=== PATIENT | female | born 1955 | race Caucasian/White ===

== ENCOUNTER 2022-09-23 13:27 | Emergency (ER) | payer OTHER, BC ==
[~2022-09-23] VITALS: Ht 162.6 cm; Wt 63.5 kg
== END 2022-09-23 16:36 | disposition home or self-care (01) ==
LOC: ER 13:27
DX: B02.9 Zoster without complications (principal)

== ENCOUNTER 2023-01-07 14:03 | Outpatient (CLI) | payer OTHER, BC | END 2023-01-07 14:16 | disposition home or self-care (01) | LOC: MAMO-SONO 14:03 | PROVIDERS: ATTEND Internal Medicine | DX: Z12.31 Encounter for screening mammogram for malignant neoplasm of breast (principal) ==

== ENCOUNTER → 2023-09-01 | Emergency (ER) | payer OTHER, BC ==
[~2023-09-01] VITALS: Ht 162.6 cm; Wt 65.8 kg
[2023-09-01 12:01] LABS: HEMATOCRIT 35.5 % (36.0-45.00); HEMOGLOBIN 12.5 g/dL (12.0-15.00); MEAN CELL VOLUME 92.6 fL (80.00-100.00); MEAN CORPUSCULAR HEMOGLOBIN 32.5 pg (27.00-32.0); MEAN CORPUSCULAR HGB CONC 35.2 g/dl (32.0-36.0); PLATELET COUNT 286 K/uL (150-450); RED BLOOD COUNT 3.84 M/uL (4.00-6.00); RED CELL DISTRIBUTION WIDTH 12.5 % (11.5-14.5)
[2023-09-01 13:10] LABS: ABG PO2 99.2 mmHg (80-100); ABG pCO2 33.3 mmHg (35-45); BASE EXCESS 0.1 mmol/l; BICARBONATE 23.2 mmol/l (23-25); SaO2 98.1 %; Tco2 24.2 mmol/l
[2023-09-01 13:12] LABS: allen test SATISFACTORY; o2 21 %; puncture site RADIAL RIGHT
== END | disposition home or self-care (01) ==
LOC: ER 09:57
PROVIDERS: Emergency Medicine
DX: J22 Unspecified acute lower respiratory infection (principal); Z20.822 Contact with and (suspected) exposure to COVID-19

== ENCOUNTER 2023-12-24 15:43 | Outpatient (CLI) | payer OTHER, BC | END 2023-12-24 15:50 | disposition home or self-care (01) | LOC: RAD 15:43 | PROVIDERS: ATTEND Internal Medicine Cardiovascular Disease | DX: M54.2 Cervicalgia (principal); M54.30 Sciatica, unspecified side ==

== ENCOUNTER 2024-01-16 07:11 | Emergency (ER) | payer OTHER, BC ==
[~2024-01-16] VITALS: Ht 167.6 cm; Wt 67.6 kg
== END 2024-01-16 09:03 | disposition home or self-care (01) ==
LOC: ER 07:11
DX: S61.012A Laceration without foreign body of left thumb without damage to nail, initial encounter (principal); X58.XXXA Exposure to other specified factors, initial encounter; Y93.89 Activity, other specified; Y92.89 Other specified places as the place of occurrence of the external cause; Y99.8 Other external cause status

== ENCOUNTER 2024-08-05 07:28 | Outpatient (CLI) | payer OTHER, BC | END 2024-08-05 07:40 | disposition home or self-care (01) | LOC: MAMO-SONO 07:28 | PROVIDERS: ATTEND Internal Medicine | DX: N60.29 Fibroadenosis of unspecified breast (principal) ==

== ENCOUNTER 2025-01-17 12:50 | Outpatient (CLI) | payer OTHER | END 2025-01-17 12:52 | disposition home or self-care (01) | LOC: NUCLEAR 12:50 | PROVIDERS: ATTEND Internal Medicine | DX: Z13.820 Encounter for screening for osteoporosis (principal); M81.0 Age-related osteoporosis without current pathological fracture ==

== ENCOUNTER 2025-01-24 08:01 | Outpatient (CLI) | payer OTHER | END 2025-01-24 08:02 | disposition home or self-care (01) | LOC: SONOGRAMA 08:01 | PROVIDERS: ATTEND Internal Medicine | DX: J06.9 Acute upper respiratory infection, unspecified (principal); E55.9 Vitamin D deficiency, unspecified; D64.9 Anemia, unspecified; N39.0 Urinary tract infection, site not specified; A07.1 Giardiasis [lambliasis]; K80.12 Calculus of gallbladder with acute and chronic cholecystitis without obstruction; Z13.820 Encounter for screening for osteoporosis ==